=== PATIENT | female | born 1980 | race Caucasian/White ===

== ENCOUNTER → 2019-05-28 12:52 | Outpatient (CLI) | payer MEDICAID ==
[2014-12-12 08:31] VITALS: BMI 24.5
[~2019-05-28 12:52] MED LIST: ADDERALL 20 MG20 M1 PO; ARMOUR THYROID90 MG PO; HYDROCODONE-APA1 TAB PO; LOESTRIN PO; METFORMIN HCL500 M1 PO; PRILOSEC20 MG PO; PROMETRIUM200 MG PO; XANAX0.5 MG PO; ZOFRAN ODT4 MG/UDTAB PO
== END | disposition home or self-care (01) ==
LOC: D.LABREF 12:52
PROVIDERS: ATTEND Urology
DX: R31.9 Hematuria, unspecified (principal)

== ENCOUNTER → 2019-06-05 08:09 | Outpatient (CLI) | payer MEDICAID ==
[2014-12-12 08:31] VITALS: BMI 24.5
== END | disposition home or self-care (01) ==
LOC: D.CT 08:09
PROVIDERS: ATTEND Urology
DX: R31.21 Asymptomatic microscopic hematuria (principal)

== ENCOUNTER 2019-07-03 08:03 | Day surgery (SDC) | payer MEDICAID ==
[~2019-07-03] VITALS: Ht 160 cm; Wt 69.9 kg
[~2019-07-03 08:03] MED LIST changes: +ADVIL200 MG PO; +ALOE VERA PO; +BENADRYL25 MG PO; +ED-SPAZ0.125 MG PO; +FLUTICASONE PRO16 GM NASAL; +GLUCOSAMINE HC500 MG PO; +LEVOTHYROXINE75 MCG PO; +MULTI-DAY VITAM1 TAB PO; +SINGULAIR10 MG PO; +SPRINTEC 28 DA1 EAC1 PO; +[UNRECOGNIZED DRUG - OTHER] PO
[2019-07-03 08:47] LABS: HEMATOCRIT 39.5 % (36.0-48.0); HEMOGLOBIN 13.5 g/dL (12-16); MCH 30.1 pg (26.0-34.0); MCHC 34.2 g/dL (31.0-37.0); MCV 88.2 fL (80.0-100.0); MEAN PLATELET VOLUME 9.7 fL (7.4-10.4); RBC 4.48 10x6/uL (4.00-5.40); RDW 13.3 % (11.5-14.5); WBC 7.5 10x3/uL (4.8-10.8)
[2019-07-03 09:04] VITALS: BP 118/66; Ht 160 cm; Wt 69.9 kg
[2019-07-03 09:10] LABS: HCG URINE NEGATIVE (NEGATIVE)
--- NOTE | 2019-07-03 13:02 | OP ---
PATIENT NAME: ANTONIO ROSALES MEDICAL RECORD: [id number] :78 LOCATION:[facility] ADMISSION DATE: SURGEON: HUDSON ALEJO MD DATE OF OPERATION: 07/03/2019 SURGEON: Hudson Alejo MD ANESTHESIA: TIVA by Melanie Carbajal CRNA DIAGNOSES: Microhematuria, interstitial cystitis. PROCEDURES: Cystoscopy, hydrodistention, intravesical Rimso instillation. FINDINGS: Single ureteral orifices bilaterally, diffusely inflamed bladder without any bladder tumors. BLOOD LOSS: None. CLINICAL HISTORY: This is a 38-year-old female who has microscopic hematuria and symptoms of interstitial cystitis including vaginal and suprapubic pain with urinary frequency and urgency. For the microscopic hematuria, she had a CT scan, which was normal. Urine cytology was benign. She used to have cystoscopy to complete the hematuria workup. If we find bladder inflammation, which I suspect that we will, she will be having hydrodistention and intravesical Rimso instillation. SHE IS ALLERGIC TO AMOXICILLIN, LEVAQUIN AND TEQUIN. She was given clindamycin IV account retention representative to the OR. DESCRIPTION OF PROCEDURE: The patient was given IV sedation. She was then placed in the lithotomy position and prepped and draped. A 21-Samoan cystoscope with 30-degree lens was used for visualization. Findings are as outlined above. I distended the bladder to 500 mL and held the volume in there for 2 minutes. The bladder was then emptied through the scope and then the scope was removed. A 16-Samoan red rubber catheter was introduced into the bladder. Through the lumen of the catheter, 50 mL of Rimso solution was injected into the bladder. Once the solution was in the bladder, the catheter was removed. The patient will hold the solution in the bladder for 15 minutes and then void it out later. I will see the patient in followup in 3 weeks' time to check to see if she needs any further treatments with Rimso. TRANSINT:[id number] Voice Confirmation ID: [id number] DOCUMENT ID: [id number] HUDSON ALEJO MD at 1302 CC: [id number] DICTATION DATE: 07/03/19 1157 COMMUNITY ENGAGEMENT REPRESENTATIVE: 07/03/19 1223 [id number] [place] [id number]
--- NOTE | 2019-07-03 13:37 | NUR ---
1325 IV DC'D WITH TIP INTACT.
== END 2019-07-03 13:28 | disposition home or self-care (01) ==
LOC: D.OPS 08:03 → D.PAN 10:40 → D.OPS 10:40 → D.PAN 10:45 → D.OPS 13:28
PROVIDERS: Anesthesiology; ATTEND Urology
DX: N30.11 Interstitial cystitis (chronic) with hematuria (principal)

== ENCOUNTER → 2019-09-04 18:27 | Outpatient (CLI) | payer MEDICAID ==
[2019-07-03 09:04] VITALS: BMI 27.3
== END | disposition home or self-care (01) ==
LOC: D.LABREF 18:27
PROVIDERS: ATTEND Urology
DX: R31.9 Hematuria, unspecified (principal)